=== PATIENT | male | born 1970 | race Caucasian/White ===

== ENCOUNTER 2020-03-06 21:52 | Emergency (ER) | payer MEDICAID ==
[~2020-03-06] VITALS: Ht 162.6 cm; Wt 106.0 kg
[2020-03-06 22:02] VITALS: BP 141/93
== END 2020-03-07 00:01 | disposition left against medical advice (07) ==
LOC: ER 21:52
DX: Z53.21 Procedure and treatment not carried out due to patient leaving prior to being seen by health care provider (principal); R07.89 Other chest pain
CPT/HCPCS: 93005